=== PATIENT | female | born 1985 | race Caucasian/White ===

== ENCOUNTER 2017-04-08 22:50 | Emergency (ER) | payer MEDICAID ==
[2017-04-08] MEDS ORDERED: Albuterol-Ipratrop 3 mg / 0.5 (3 ml) UD INH STA (23:09)
[2017-04-08 23:12] VITALS: RESP 20; O2SAT 95
[2017-04-08] MEDS ORDERED: Albuterol-Ipratrop 3 mg / 0.5 (3 ml) UD ONE (23:17)
[2017-04-08 23:27] LABS: BASO % 0.4 % (0.0-2.0); EOS # 0.1 K/uL (0.0-0.7); EOS % 1.4 % (0.0-4.0); HEMOGLOBIN 13.2 g/dL (11.0-16.0); LYMPH # 4.4 K/uL (1.0-4.3); LYMPH % 42.8 % (20.0-40.0); MEAN CELL VOLUME 92.8 fL (81.0-99.0); MEAN CORPUSCULAR HEMOGLOBIN 31.4 pg (27.0-31.0); MEAN CORPUSCULAR HGB CONC 33.8 g/dL (33.0-37.0); MEAN PLATELET VOLUME 8.5 fL (7.2-11.7); MONO % 9.4 % (0.0-10.0); NEUT # 4.7 K/uL (1.8-7.0); NRBC % 0.1 % (0.0-2.0); RBC 4.19 Mil/uL (3.80-5.20); RED CELL DISTRIBUTION WIDTH 11.8 % (11.5-14.5); WHITE BLOOD COUNT 10.3 K/uL (4.8-10.8)
[2017-04-08 23:36] LABS: ALBUMIN 4.2 g/dL (3.5-5.0)
[2017-04-08 23:38] LABS: GFR AFRICAN-AMERICAN > 60; GFR NON-AFRICAN AMERICAN > 60
[2017-04-08 23:39] LABS: ALB/GLOB RATIO 1.3 (1.0-2.1); ALT/SGPT 33 U/L (9-52); AST/SGOT 25 U/L (14-36); BLOOD UREA NITROGEN 14 mg/dL (7-17)
[2017-04-08 23:40] LABS: CALCIUM 8.9 mg/dl (8.6-10.4)
--- NOTE | 2017-04-08 23:53 | C.PDOC ---
History Of Present Illness 31 year old female who presents to the ER with a complaint of SOB. Patient states she has a Hx of asthma and was exposed to chlorox fumes in her bathroom today. Denies fever, chills, or pain. Chief Complaint (Nursing): Shortness Of Breath History Per: Patient History/Exam Limitations: no limitations Onset/Duration Of Symptoms: Hrs Current Symptoms Are (Timing): Still Present Initiating Event: Upper Respiratory Illness, Other (Exposure to fumes) Current Respiratory Medications: See Home Med List Associated Symptoms: denies: Fever, Chills, Chest Pain Past Medical History Reviewed: Historical Data, Nursing Documentation, Vital Signs Vital Signs: Last Vital Signs Temp 97.7 F 04/08/17 22:54 Pulse 101 H 04/08/17 22:54 Resp 20 04/08/17 23:06 BP 117/77 04/08/17 22:54 Pulse Ox 95 04/08/17 23:54 - Medical History PMH: Asthma, Migraine Surgical History: Family History: States: Unknown Family Hx - Social History Hx Tobacco Use: No Hx Alcohol Use: No Hx Substance Use: No - Immunization History Hx Tetanus Toxoid Vaccination: No Hx Influenza Vaccination: No Hx Pneumococcal Vaccination: No Review Of Systems Constitutional: Negative for: Fever, Chills Cardiovascular: Negative for: Chest Pain Respiratory: Positive for: Shortness of Breath Physical Exam - Physical Exam Appears: Non-toxic Skin: Normal Color, Warm, Dry Head: Atraumatic, Normacephalic Oral Mucosa: Moist Chest: Symmetrical, No Tenderness Cardiovascular: Rhythm Regular, No Murmur Respiratory: Decreased Breath Sounds, No Rales, No Rhonchi, Wheezing, Other ( Mildly dyspenic) Gastrointestinal/Abdominal: Soft, No Tenderness Neurological/Psych: Oriented x3, Normal Speech, Normal Cognition ED Course And Treatment - Laboratory Results Result Diagrams: 04/08/17 23:24 04/08/17 23:24 O2 Sat by Pulse Oximetry: 95 (Room air) Pulse Ox Interpretation: Normal Progress Note: Duoneb administered. On reevaluation, patient is asymptomatic, lungs sounds are clear; will discharge home. Disposition Counseled Patient/Family Regarding: Diagnosis - Disposition Referrals: [facility] at [facility] [Outside] Disposition: HOME/ ROUTINE Disposition Time: 23:51 Condition: STABLE Additional Instructions: TO USE NEBULIZER AT HOME. Instructions: Asthma (DC), Bronchospasm (DC) - POA Present On Arrival: None - Clinical Impression Clinical Impression: Dyspnea, Asthma, Exposure to chemical inhalation - Scribe Statement The provider has reviewed the documentation as recorded by the Scribmary Boyd All medical record entries made by the Scribe were at my direction and personally dictated by me. I have reviewed the chart and agree that the record accurately reflects my personal performance of the history, physical exam, medical decision making, and the department course for this patient. I have also personally directed, reviewed, and agree with the discharge instructions and disposition.
[2017-04-09 00:07] VITALS: BP 107/65; PULSE 86; TEMP 97.9
== END 2017-04-09 00:12 | disposition home or self-care (01) ==
LOC: C.ER 22:50
DX: Z77.098 Contact with and (suspected) exposure to other hazardous, chiefly nonmedicinal, chemicals (principal); R06.02 Shortness of breath; J45.909 Unspecified asthma, uncomplicated

== ENCOUNTER 2018-07-30 13:25 | Emergency (ER) | payer MEDICAID, OTHER ==
[2018-07-30] MEDS ORDERED: Sodium Chloride 0.9% 1,000 ML IV ONE (14:18)
[2018-07-30 15:10] LABS: BASO % 0.3 % (0.0-2.0); EOS # 0.5 K/uL (0.0-0.7); EOS % 3.7 % (0.0-4.0); HEMOGLOBIN 13.6 g/dL (11.0-16.0); LYMPH # 2.9 K/uL (1.0-4.3); LYMPH % 20.9 % (20.0-40.0); MEAN CELL VOLUME 93.5 fL (81.0-99.0); MEAN CORPUSCULAR HEMOGLOBIN 31.9 pg (27.0-31.0); MEAN CORPUSCULAR HGB CONC 34.1 g/dL (33.0-37.0); MEAN PLATELET VOLUME 9.2 fL (7.2-11.7); MONO # 0.8 K/uL (0.0-0.8); MONO % 5.4 % (0.0-10.0); NEUT # 9.8 K/uL (1.8-7.0); NEUT % 69.7 % (50.0-75.0); RBC 4.27 Mil/uL (3.80-5.20); RED CELL DISTRIBUTION WIDTH 12.3 % (11.5-14.5); WHITE BLOOD COUNT 14.1 K/uL (4.8-10.8)
[2018-07-30 15:25] LABS: SQUAMOUS EPITHIAL 2 /hpf (0-5)
[2018-07-30 15:26] LABS: ALB/GLOB RATIO 1.3 (1.0-2.1); ALBUMIN 4.4 g/dL (3.5-5.0); ALT/SGPT 18 U/L (9-52); AST/SGOT 46 U/L (14-36); BLOOD UREA NITROGEN 12 mg/dL (7-17); CALCIUM 9.1 mg/dl (8.6-10.4); GFR NON-AFRICAN AMERICAN > 60
[2018-07-30 15:27] LABS: URINE BILIRUBIN NEGATIVE (NEGATIVE); URINE BLOOD 2+ (NEGATIVE); URINE CLARITY Clear (Clear); URINE COLOR Yellow (YELLOW); URINE GLUCOSE (UA) NORMAL (Normal); URINE LEUKOCYTE ESTERASE 3+ Leu/uL (Negative); URINE PROTEIN NEGATIVE (NEGATIVE); URINE UROBILINOGEN NORMAL mg/dL (0.2-1.0)
--- NOTE | 2018-07-30 16:28 | US ---
Date of service: 07/30/2018 HISTORY: PELVIC PAIN, , VAG BLEED COMPARISON: None available. TECHNIQUE: Transabdominal/transvaginal sonographic evaluation FINDINGS: UTERUS: Measures of the pelvis performed 8.6 x 5.0 x 6.1 cm. Anteverted. Normal in size and appearance. There is a midbody fibroid that measures approximately 0.91 x 1.0 x 0.76 cm. ENDOMETRIUM: Measures 1.78 mm in diameter. There is no evidence of intrauterine gestation. Note however that the possibility of a ectopic cannot be excluded based on this exam. Follow-up serial serum beta HCG and serial ultrasound recommended. CERVIX: No cervical abnormality identified. Cervix measures approximately 2.7 cm RIGHT OVARY: Measures 7.0 x 4.9 x 6.6 cm. No solid mass. Normal flow.. There are 2 adjacent-tandem cysts the 1st measuring 3.1 x 3.0 x 2.9 and the 2nd measuring 3.9 x 3.1 x 3.2 cm.. LEFT OVARY: Measures cm. No solid mass. Normal flow. FREE FLUID: Small amount of free fluid is present within the cul de sac. OTHER FINDINGS: None. IMPRESSION: Thickened endometrium.There is no evidence of intrauterine gestation. Note however that the possibility of a ectopic cannot be excluded based on this exam. Follow-up serial serum beta HCG and serial ultrasound recommended.. There are 2 adjacent right ovarian cysts as detailed above. Small uterine fibroid.
[2018-07-30] MEDS ORDERED: Potassium Chloride 20 mEq ER Tab PO STA (16:47)
--- NOTE | 2018-07-30 16:58 | C.PDOC ---
History Of Present Illness 32 y/o female, currently , presents to ER complaining of suprapubic pain and left-sided pelvic pain that started this morning. Patient states she had vaginal spotting since last night. Denies nausea, vomiting, diarrhea, or dysuria. Time Seen by Provider: 07/30/18 14:00 Chief Complaint (Nursing): Female Genitourinary History Per: Patient History/Exam Limitations: no limitations Onset/Duration Of Symptoms: Days Current Symptoms Are (Timing): Still Present Past Medical History Reviewed: Historical Data, Nursing Documentation, Vital Signs Vital Signs: Last Vital Signs Temp 98.7 F 07/30/18 13:39 Pulse 90 07/30/18 13:39 Resp 16 07/30/18 13:39 BP 130/82 07/30/18 13:39 Pulse Ox 96 07/30/18 13:39 - Medical History PMH: Asthma, Migraine Surgical History: Family History: States: No Known Family Hx - Social History Hx Tobacco Use: No Hx Alcohol Use: No Hx Substance Use: No - Immunization History Hx Tetanus Toxoid Vaccination: No Hx Influenza Vaccination: No Hx Pneumococcal Vaccination: No Review Of Systems Constitutional: Negative for: Fever, Chills Cardiovascular: Negative for: Chest Pain Respiratory: Negative for: Shortness of Breath Gastrointestinal: Positive for: Abdominal Pain (suprapubic and left-sided pelvic pain). Negative for: Nausea, Vomiting, Diarrhea Genitourinary: Positive for: Other (Vaginal spotting). Negative for: Dysuria Physical Exam - Physical Exam Appears: Non-toxic, No Acute Distress Skin: Warm, Dry Head: Atraumatic, Normacephalic Eye(s): bilateral: Normal Inspection Oral Mucosa: Moist Cardiovascular: Rhythm Regular, No Murmur Respiratory: Normal Breath Sounds, No Rales, No Rhonchi, No Wheezing Gastrointestinal/Abdominal: Tenderness (to suprapubic region), No Guarding, No Rebound, Other (Negative McBurney's; Negative Sprague's) Neurological/Psych: Oriented x3, Normal Speech Gait: Steady ED Course And Treatment - Laboratory Results Result Diagrams: 07/30/18 15:03 07/30/18 15:03 O2 Sat by Pulse Oximetry: 96 (RA) Pulse Ox Interpretation: Normal - CT Scan/US Abd/Pel/Transvag US Other Rad Studies (CT/US): Read By Radiologist, Radiology Report Reviewed CT/US Interpretation: FINDINGS: UTERUS: Measures of the pelvis performed 8.6 x 5.0 x 6.1 cm. Anteverted. Normal in size and appearance. There is a midbody fibroid that measures approximately 0.91 x 1.0 x 0.76 cm. ENDOMETRIUM: Measures 1.78 mm in diameter. There is no evidence of intrauterine gestation. Note however that the possibility of a ectopic cannot be excluded based on this exam. Follow-up serial serum beta HCG and serial ultrasound recommended. CERVIX: No cervical abnormality identified. Cervix measures approximately 2.7 cm. RIGHT OVARY: Measures 7.0 x 4.9 x 6.6 cm. No solid mass. Normal flow.. There are 2 adjacent-tandem cysts the 1st measuring 3.1 x 3.0 x 2.9 and the 2nd measuring 3.9 x 3.1 x 3.2 cm.. LEFT OVARY: Measures cm. No solid mass. Normal flow. FREE FLUID: Small amount of free fluid is present within the cul de sac. OTHER FINDINGS: None. IMPRESSION: Thickened endometrium.There is no evidence of intrauterine gestation. Note however that the possibility of a ectopic cannot be excluded based on this exam. Follow-up serial serum beta HCG and serial ultrasound recommended.. There are 2 adjacent right ovarian cysts as detailed above. Small uterine fibroid. Progress Note: Bloodwork, urine, and transvaginal US ordered. IV fluids and K- Dur administered. On re-evaluation, patient is resting comfortably, and is in no acute distress. Patient is tolerating PO and will be discharged home. 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 DENTRO DE 1 SEMANA VUELVA A LA GUADALUPE DE EMERGENCIA EN 7 LAUREN PARA REPETIR EL NIVEL DE HORMONA Y EL ULTRASONIDO VUELVA A LA GUADALUPE DE EMERGENCIA SI LOS SNTOMAS SE JAMESON PROBLEMAS Instructions: Acute Pelvic Pain (DC) Forms: [employer] (Persian), General Discharge Instructions Print Language: KYRGYZ - Clinical Impression Clinical Impression: Pelvic pain affecting - Scribe Statement The provider has reviewed the documentation as recorded by the Cherylibmary Bender Provider Attestation: All medical record entries made by the Scribe were at my direction and personally dictated by me. I have reviewed the chart and agree that the record accurately reflects my personal performance of the history, physical exam, medical decision making, and the department course for this patient. I have also personally directed, reviewed, and agree with the discharge instructions and disposition.
[2018-07-30] MEDS ORDERED: Potassium Chloride 20 mEq ER Tab PO ONE (17:06)
[2018-07-30 18:33] VITALS: BP 117/79; PULSE 70; RESP 20; TEMP 98.3; O2SAT 100
== END 2018-07-30 18:33 | disposition home or self-care (01) ==
LOC: C.ER 13:25
DX: O26.891 Other specified pregnancy related conditions, first trimester (principal); R10.2 Pelvic and perineal pain; Z3A.01 Less than 8 weeks gestation of pregnancy
CPT/HCPCS: 76830; 76856; 80053; 81001; 84702; 85025; 86850; 86900; 96360; 99285; J7030

== ENCOUNTER 2018-12-09 21:57 | Emergency (ER) | payer OTHER ==
[2018-12-09 22:12] VITALS: BP 126/86; PULSE 79; TEMP 97.5; O2SAT 100
--- NOTE | 2018-12-09 22:25 | C.PDOC ---
History Of Present Illness 33 year old female presents to the emergency department with complains of headache requesting head CT. Patient states that she was diagnosed with an aneurysm one year ago but states that she did not follow-up with neurology because she "doesn't like doctors". Patient states that her headache is recurring in a similar presentation. She denies neck pain, weakness, numbness. Time Seen by Provider: 12/09/18 22:11 Chief Complaint (Nursing): Headache History Per: Patient History/Exam Limitations: no limitations Onset/Duration Of Symptoms: Hrs Current Symptoms Are (Timing): Still Present Quality: Aching Preceeding Symptoms: None Associated Symptoms: denies: Photophobia, Blurred Vision, Nausea, Vomiting, E xtremity Weakness Past Medical History Reviewed: Historical Data, Nursing Documentation, Vital Signs Vital Signs: Last Vital Signs Temp 97.5 F L 12/09/18 22:03 Pulse 79 12/09/18 22:03 Resp 16 12/09/18 22:03 BP 126/86 12/09/18 22:03 Pulse Ox 100 12/09/18 22:03 - Medical History PMH: Asthma, Migraine (teen age) Surgical History: Family History: States: No Known Family Hx - Social History Hx Tobacco Use: No Hx Alcohol Use: No Hx Substance Use: No - Immunization History Hx Tetanus Toxoid Vaccination: No Hx Influenza Vaccination: No Hx Pneumococcal Vaccination: No Review Of Systems Except As Marked, All Systems Reviewed And Found Negative. Constitutional: Negative for: Fever, Chills Cardiovascular: Negative for: Chest Pain Respiratory: Negative for: Cough, Shortness of Breath Gastrointestinal: Negative for: Nausea, Vomiting, Abdominal Pain Neurological: Positive for: Headache. Negative for: Weakness, Numbness, Dizziness Physical Exam - Physical Exam Appears: Non-toxic, No Acute Distress Skin: Normal Color, Warm, Dry Head: Atraumatic, Normacephalic Eye(s): bilateral: Normal Inspection, PERRL, EOMI Nose: Normal Oral Mucosa: Moist Neck: Normal, Supple Chest: Symmetrical, No Tenderness Cardiovascular: Rhythm Regular, No Murmur Respiratory: Normal Breath Sounds, No Rales, No Rhonchi, No Wheezing Gastrointestinal/Abdominal: Soft, No Tenderness, No Guarding, No Rebound Extremity: Normal ROM Neurological/Psych: Oriented x3, Normal Speech, Normal Cognition, Normal Cranial Nerves, Normal Motor, Normal Sensation, Normal Reflexes ED Course And Treatment O2 Sat by Pulse Oximetry: 100 (RA) Pulse Ox Interpretation: Normal - CT Scan/US CT Head Other Rad Studies (CT/US): Read By Radiologist, Radiology Report Reviewed CT/US Interpretation: EXAM: CT Head without Intravenous Contrast. CLINICAL HISTORY: Headache. TECHNIQUE: Axial computed tomography images of the head/brain without intravenous contrast. 0.00 mGy-cm. COMPARISON: CT\\SD - HEAD W/O CONTRAST - 02/12/2014 05:54 PM EDT. FINDINGS: BRAIN. No acute intraparenchymal hemorrhage. No mass lesion. No CT evidence for acute territorial infarct. No midline shift or extra-axial collections. VENTRICLES: No hydrocephalus. ORBITS: The orbits are unremarkable. SINUSES AND MASTOIDS: The paranasal sinuses and mastoid air cells are clear. BONES: No fracture. SOFT TISSUES: Unremarkable. IMPRESSION: No acute intracranial abnormality. No interval change. Medical Decision Making Medical Decision Making: Plan: CT Head Tylenol 975mg PO Patient was talking on the phone for the entire duration of her ED stay. Patient is in no distress at this time. The results of the CT scan were explained to the patient, she was strongly advised to follow-up with neurology. Disposition Counseled Patient/Family Regarding: Diagnosis, Need For Followup, Rx Given - Disposition Referrals: [facility] [Outside] Disposition: HOME/ ROUTINE Disposition Time: 22:24 Condition: STABLE Additional Instructions: Please follow up with PMD Tylenol for pain Return to ER if symptoms worsen or if weakness, numbness or worse Instructions: Headache, Adult (DC) Forms: [employer] (Telugu) - Clinical Impression Clinical Impression: Headache - PA / PHARMACY TECH / Resident Statement MD/DO has reviewed & agrees with the documentation as recorded. - Scribe Statement The provider has reviewed the documentation as recorded by the Scribe (Dionicio Sellers) All medical record entries made by the Scribe were at my direction and personally dictated by me. I have reviewed the chart and agree that the record accurately reflects my personal performance of the history, physical exam, medical decision making, and the department course for this patient. I have also personally directed, reviewed, and agree with the discharge instructions and disposition.
[2018-12-10 00:08] VITALS: RESP 20
--- NOTE | 2018-12-10 15:36 | CT ---
Date of service: 12/09/2018 PROCEDURE: CT HEAD WITHOUT CONTRAST. HISTORY: headache COMPARISON: 02/12/2014 TECHNIQUE: Axial computed tomography images were obtained through the head/brain without intravenous contrast. Radiation dose: Total exam DLP = 1106.72 mGy-cm. This CT exam was performed using one or more of the following dose reduction techniques: Automated exposure control, adjustment of the mA and/or kV according to patient size, and/or use of iterative reconstruction technique. FINDINGS: HEMORRHAGE: No intracranial hemorrhage. BRAIN: No mass effect or edema. No atrophy or chronic microvascular ischemic changes. VENTRICLES: Unremarkable. No hydrocephalus. CALVARIUM: Unremarkable. PARANASAL SINUSES: Unremarkable as visualized. No significant inflammatory changes. MASTOID AIR CELLS: Unremarkable as visualized. No inflammatory changes. OTHER FINDINGS: None. IMPRESSION: Normal CT of the Head. No intracranial mass, hemorrhage or evidence of acute infarct. The preliminary findings for this examination were reported by [facility] at 11:26 p.m. on 12/09/2018. There is concurrence of this report with the preliminary findings.
== END 2018-12-10 00:07 | disposition home or self-care (01) ==
LOC: C.ER 21:57
DX: R51 Headache (principal)

== ENCOUNTER 2018-12-12 16:00 | Emergency (ER) | payer OTHER ==
[2018-12-12 16:23] VITALS: RESP 18; TEMP 97.9
[2018-12-12] MEDS ORDERED: Oxycodone/Acetaminophen 5/325 mg Tab PO STA (16:51)
[2018-12-12] MEDS ORDERED: Fluorescein 1 mg Ophthalmic Strip OD ONE (16:53)
[2018-12-12] MEDS ORDERED: Fluorescein 1 mg Ophthalmic Strip ONE ×2 (17:01→17:08)
[2018-12-12] MEDS ORDERED: Tetracaine 0.5% Ophth (OR ONLY) ONE (17:01)
[2018-12-12] MEDS ORDERED: Oxycodone/Acetaminophen 5/325 mg Tab ONE (17:08)
[2018-12-12] MEDS ORDERED: Tetracaine 0.5% Ophth (OR ONLY) OD ONE (17:40)
--- NOTE | 2018-12-12 17:51 | C.PDOC ---
History Of Present Illness 33 year old female presents to ED with complaint of right sided headache, facial pain, and light sensitivity that began 4 days ago. Patient was seen [place] [facility] [place] and was told that she was having a migraine. Patient had a head CT done that was normal. Patient states that she wanted the work up done because she had a "brain aneurysm as a child". She denies any visual changes, fever, and facial droop. Time Seen by Provider: 12/12/18 16:30 Chief Complaint (Nursing): Headache History Per: Patient History/Exam Limitations: no limitations Onset/Duration Of Symptoms: Days (4) Current Symptoms Are (Timing): Still Present Past Medical History Reviewed: Historical Data, Nursing Documentation, Vital Signs Vital Signs: Last Vital Signs Temp 97.9 F 12/12/18 16:06 Pulse 94 H 12/12/18 16:06 Resp 18 12/12/18 16:06 BP 122/79 12/12/18 16:06 Pulse Ox 98 12/12/18 16:06 - Medical History PMH: Asthma, Migraine (teen age) Surgical History: No Surg Hx, Family History: States: Unknown Family Hx - Social History Hx Tobacco Use: No Hx Alcohol Use: No Hx Substance Use: No - Immunization History Hx Tetanus Toxoid Vaccination: No Hx Influenza Vaccination: No Hx Pneumococcal Vaccination: No Review Of Systems Constitutional: Positive for: Other (facial pain). Negative for: Fever, Chills, Weakness Eyes: Positive for: Other (light sensitivity). Negative for: Vision Change Neurological: Positive for: Headache (right-sided). Negative for: Weakness, Numbness, Dizziness, Other (facial droop) Physical Exam - Physical Exam Appears: Non-toxic, No Acute Distress Skin: Rash (vascicular rash to the right side of the face with V1 distribution, tender to palpation) Head: Atraumatic, Normacephalic Eye(s): bilateral: EOMI, right: Other (eye exam with fluoescein and tetracaine, no dendritic lesions) Nose: No Other (Griggs's sign) Neck: Normal ROM, Supple Chest: Symmetrical, No Deformity Cardiovascular: Rhythm Regular, No Murmur Respiratory: No Accessory Muscle Use, No Rales, No Rhonchi, No Wheezing Gastrointestinal/Abdominal: Soft, No Tenderness Extremity: Capillary Refill (<2 seconds) Neurological/Psych: Oriented x3, Normal Speech, Normal Cognition, Normal Cranial Nerves ED Course And Treatment O2 Sat by Pulse Oximetry: 98 (in RA) Progress Note: Patient given Percocet PO, Zovirax PO, and Motrin PO. POC U-preg ordered for patient. Disposition Counseled Patient/Family Regarding: Studies Performed, Diagnosis, Need For Followup, Rx Given - Disposition Referrals: Shaik Piedra MD [Staff Provider] - Disposition: HOME/ ROUTINE Disposition Time: 17:50 Condition: STABLE Additional Instructions: FOLLOW UP WITH YOUR DOCTOR IN 1-2 DAYS USE MEDICATIONS DIRECTED RETURN TO EMERGENCY ROOM IF YOUR SYMPTOMS BECOME WORSE SEGUIR CON BOCANEGRA MDICO EN 1-2 LAUREN UTILICE MEDICAMENTOS MARGIE SE DIRIGE VUELVA A LA GUADALUPE DE EMERGENCIA SI FILOMENA SNTOMAS SE HACEN PEOR Prescriptions: Acyclovir [Zovirax] 800 mg PO 5XD #35 tab Hydrocodone/Acetaminophen [Hydrocodone-Acetamin 5-325 mg] 1 each PO Q6 PRN #15 tablet PRN Reason: PAIN Naproxen 375 mg PO BID PRN #20 tablet PRN Reason: pain Instructions: Shingles (DC) Forms: [employer] (Peruvian) Print Language: MAURITIAN - Clinical Impression Clinical Impression: Herpes zoster - Scribe Statement The provider has reviewed the documentation as recorded by the Scribe (Angelique Iglesias) All medical record entries made by the Scribe were at my direction and personally dictated by me. I have reviewed the chart and agree that the record accurately reflects my personal performance of the history, physical exam, medical decision making, and the department course for this patient. I have also personally directed, reviewed, and agree with the discharge instructions and disposition.
[2018-12-12 19:00] VITALS: BP 113/74; PULSE 74; O2SAT 100
== END 2018-12-12 19:01 | disposition home or self-care (01) ==
LOC: C.ER 16:00
DX: B02.9 Zoster without complications (principal)